=== PATIENT | male | born 1940 | race American Indian/Alaskan Native ===

== ENCOUNTER 2021-06-25 17:38 | Observation (INO) | payer MEDICARE ==
[2021-06-25] MEDS ORDERED: ASPIRIN 325 MG TAB PO ONE (18:58)
[2021-06-25 19:56] LABS: Basophils # (Auto) 0.1 K/mm3 (0.0-0.1); Basophils % (Auto) 0.6 % (0.0-1.8); Eosinophils # (Auto) 0.2 K/mm3 (0.0-0.4); Eosinophils % (Auto) 2.7 % (0.0-4.3); Hematocrit 34.1 % (35.5-45.6); Hemoglobin 10.7 gm/dl (11.8-15.2); Lymphocytes # (Auto) 1.4 K/mm3 (1.2-5.4); Lymphocytes % (Auto) 16.3 % (13.4-35.0); Mean Corpuscular HGB Conc 31 % (32-34); Mean Corpuscular Volume 86 fl (84-94); Monocytes # (Auto) 0.7 K/mm3 (0.0-0.8); Monocytes % (Auto) 7.9 % (0.0-7.3); Platelet Count 244 K/mm3 (140-440); Red Blood Count 3.97 M/mm3 (3.65-5.03); Red Cell Distribution Width 15.6 % (13.2-15.2)
--- NOTE | 2021-06-25 19:58 | XRay Report ---
CHEST 2 VIEWS INDICATION / CLINICAL INFORMATION: Chest Pain. COMPARISON: None available. FINDINGS: SUPPORT DEVICES: None. HEART / MEDIASTINUM: No significant abnormality. LUNGS / PLEURA: There is blunting of the right costophrenic angle most suggestive of a [id number] ate pleural effusion. This does not appear to be layering and could be loculated. There is adjacent p arenchymal opacification of the right lower lung. ADDITIONAL FINDINGS: No significant additional findings. IMPRESSION: 1. Findings suggesting right pleural effusion, which could be loculated. Signer Name: Joey Wang MD Signed: 06/25/2021 7:53 PM Workstation Name: [id number]
[2021-06-25 20:13] LABS: INR 1.13 (0.87-1.13)
[2021-06-25 20:20] LABS: Alanine Aminotransferase 17 units/L (7-56); Albumin 3.4 g/dL (3.9-5); BUN/Creatinine Ratio 11; Blood Urea Nitrogen 18 mg/dL (9-20); Calcium 9.2 mg/dL (8.4-10.2); Hemolysis Index 3
[2021-06-25] MEDS ORDERED: FUROSEMIDE 40 MG/4 ML INJ IV ONE (21:06)
[2021-06-25] MEDS ORDERED: ALBUTEROL 2.5 MG/3 ML NEBU IH ONE (21:10)
[2021-06-25] MEDS ORDERED: IPRATROPIUM 0.02% NEBU 2.5 ML IH ONE (21:10)
[2021-06-25] MEDS ORDERED: AZITHROMYCIN/NS 500 MG/250 ML 500 MG/250 ML BAG IV ONE (21:11)
[2021-06-25] MEDS ORDERED: cefTRIAXone/NS 2 GM/100 ML 2 GM/100 ML BAG IV ONE (21:11)
--- NOTE | 2021-06-25 21:13 | Emergency Department Report ---
ED Chest Pain HPI - General Chief Complaint: Chest Pain Stated Complaint: COUGH Time Seen by Provider: 06/25/21 18:47 Source: patient Mode of arrival: Ambulatory Limitations: No Limitations - History of Present Illness Initial Comments: Patient is a 80-year-old male with history of COPD who presents to the emergency department complaint of shortness of breath. He also reports chest pain. He states his chest pain feels that he has rocks in his chest. He notes he has had fevers chills and now has been most recently coughing up blood. He states that he has been vaccinated for Covid and flu he notes that he has had leg swelling bilaterally. He notes that he is recently been on steroids and antibiotics. Severity scale (0 -10): 8 - Related Data Home Medications Medication Instructions Recorded Confirmed Last Taken Aspirin [Adult Low Dose Aspirin EC] 81 mg PO DAILY 05/23/18 06/13/18 06/13/18 05:00 81 mg Atorvastatin [Lipitor] 80 mg PO HS 05/23/18 06/13/18 06/12/18 80 mg Losartan Potassium 100 mg PO DAILY 05/23/18 06/13/18 06/13/18 05:00 100 mg Sitagliptin Phosphate [Januvia] 50 mg PO DAILY 05/23/18 06/13/18 06/12/18 50 mg Tamsulosin [Flomax] 0.4 mg PO DAILY 05/23/18 06/13/18 06/12/18 0.4mg cloNIDine [Catapres] 0.2 mg PO BID 05/23/18 06/13/18 06/13/18 05:00 0.2mg glipiZIDE XL [Glucotrol Xl] 2.5 mg PO DAILY 05/23/18 06/13/18 06/12/18 2.5mg hydrALAZINE [Apresoline TAB] 100 mg PO TID 05/23/18 06/13/18 06/13/18 05:00 100 mg Gabapentin 600 mg PO TID 06/06/18 06/13/18 06/13/18 05:00 Previous Rx's Medication Instructions Recorded Last Taken Type ALBUTEROL NEB's [Proventil 0.083% 2 inhalation IH BID #7 ml 10/07/13 06/12/18 Rx NEBS] 2 puffs Budesoni/Formotero 160-4.5(Nf) 2 puff IH BID #7 inha 10/07/13 06/12/18 Rx [Symbicort 160-4.5 (Nf)] 2 puff Clopidogrel [Plavix] 75 mg PO DAILY #30 tablet 10/07/13 06/12/18 Rx 75 mg Furosemide [Lasix] 40 mg PO DAILY #30 tablet 10/07/13 06/13/18 05:00 Rx 40 mg Pantoprazole [Protonix TAB] 40 mg PO DAILY #30 tablet 10/07/13 06/12/18 Rx 40 mg Potassium Chloride 20 meq PO DAILY #30 packet 10/07/13 06/12/18 Rx 20 meq HYDROcodone/APAP 10-325 [[facility] 1 each PO Q6HR PRN #20 tablet 06/06/18 06/12/18 Rx 10/325] 1 tab Allergies Allergy/AdvReac Type Severity Reaction Status Date / Time No Known Allergies Allergy Verified 06/25/21 17:39 Heart Score - HEART Score History: Slightly suspicious EKG: Normal Age: > 65 Risk factors: 1-2 risk factors Troponin: < normal limit HEART Score: 3 - EKG Read Time Time EKG Completed: 17:59 EKG Read Time: 18:07 ED Review of Systems ROS: Stated complaint: COUGH Other details as noted in HPI Constitutional: chills, fever Eyes: denies: eye pain ENT: denies: throat pain Respiratory: cough, shortness of breath, SOB with exertion Cardiovascular: chest pain, dyspnea on exertion Endocrine: no symptoms reported Gastrointestinal: as per HPI Genitourinary: as per HPI Musculoskeletal: as per HPI Skin: as per HPI Neurological: as per HPI Psychiatric: as per HPI Hematological/Lymphatic: as per HPI ED Past Medical Hx - Past Medical History Hx Hypertension: Yes (1999) Hx Congestive Heart Failure: Yes Hx Diabetes: Yes Hx GERD: Yes Hx Arthritis: Yes Hx COPD: Yes - Surgical History Additional Surgical History: Bypass x 2 (2011), thoracentesis 2013 - Social History Smoking Status: Former Smoker - Medications Home Medications: Home Medications Medication Instructions Recorded Confirmed Last Taken Type ALBUTEROL NEB's [Proventil 0.083% 2 inhalation IH BID #7 ml 10/07/13 06/13/18 06/12/18 Rx NEBS] 2 puffs Budesoni/Formotero 160-4.5(Nf) 2 puff IH BID #7 inha 10/07/13 06/13/18 06/12/18 Rx [Symbicort 160-4.5 (Nf)] 2 puff Clopidogrel [Plavix] 75 mg PO DAILY #30 tablet 10/07/13 06/13/18 06/12/18 Rx 75 mg Furosemide [Lasix] 40 mg PO DAILY #30 tablet 10/07/13 06/13/18 06/13/18 05:00 Rx 40 mg Pantoprazole [Protonix TAB] 40 mg PO DAILY #30 tablet 10/07/13 06/13/18 06/12/18 Rx 40 mg Potassium Chloride 20 meq PO DAILY #30 packet 10/07/13 06/13/18 06/12/18 Rx 20 meq Aspirin [Adult Low Dose Aspirin EC] 81 mg PO DAILY 05/23/18 06/13/18 06/13/18 05:00 History 81 mg Atorvastatin [Lipitor] 80 mg PO HS 05/23/18 06/13/18 06/12/18 History 80 mg Losartan Potassium 100 mg PO DAILY 05/23/18 06/13/18 06/13/18 05:00 History 100 mg Sitagliptin Phosphate [Januvia] 50 mg PO DAILY 05/23/18 06/13/18 06/12/18 History 50 mg Tamsulosin [Flomax] 0.4 mg PO DAILY 05/23/18 06/13/18 06/12/18 History 0.4mg cloNIDine [Catapres] 0.2 mg PO BID 05/23/18 06/13/18 06/13/18 05:00 History 0.2mg glipiZIDE XL [Glucotrol Xl] 2.5 mg PO DAILY 05/23/18 06/13/18 06/12/18 History 2.5mg hydrALAZINE [Apresoline TAB] 100 mg PO TID 05/23/18 06/13/18 06/13/18 05:00 History 100 mg Gabapentin 600 mg PO TID 06/06/18 06/13/18 06/13/18 05:00 History HYDROcodone/APAP 10-325 [[facility] 1 each PO Q6HR PRN #20 tablet 06/06/18 06/13/18 06/12/18 Rx 10/325] 1 tab ED Physical Exam - General Limitations: No Limitations General appearance: alert - Head Head exam: Present: atraumatic, normocephalic - Eye Eye exam: Present: normal appearance - ENT ENT exam: Present: mucous membranes moist - Neck Neck exam: Present: normal inspection - Respiratory Respiratory exam: Present: normal lung sounds bilaterally. Absent: respiratory distress - Cardiovascular Cardiovascular Exam: Present: regular rate - Rectal Rectal exam: Present: deferred - Extremities Exam Extremities exam: Present: pedal edema (pitting edema) - Back Exam Back exam: Present: normal inspection - Neurological Exam Neurological exam: Present: alert, oriented X3 - Psychiatric Psychiatric exam: Present: normal affect, normal mood - Skin Skin exam: Present: warm, dry, intact, normal color. Absent: rash ED Course Vital Signs 06/25/21 17:42 Temperature 97.6 F Pulse Rate 99 H Respiratory 22 Rate Blood Pressure 185/90 [Right] O2 Sat by Pulse 96 Oximetry - Reevaluation(s) Reevaluation #1: 06/25/21 21:13 Labs are grossly normal except for elevated BNP. Will give IV Lasix. Chest x- ray shows pleural effusion on the right. We will also give antibiotics, obtain labs and blood cultures. ED Medical Decision Making - Lab Data Result diagrams: 06/25/21 19:39 06/25/21 19:39 - EKG Data -: EKG Interpreted by Ar EKG shows normal: sinus rhythm Rate: normal - EKG Data Interpretation: nonspecific ST-T wave ascencion - Radiology Data Radiology results: report reviewed, image reviewed - Medical Decision Making 80-year-old male here with complaint of shortness of breath. Patient has a history of COPD. He notes fevers chills leg swelling. On exam patient does appear fluid overloaded and has wheezing noted bilaterally. Plan to give DuoNebs, antibiotics. Will evaluate for elevated BNP prior to giving any Lasix. Patient likely to be admitted given age comorbidities and exam. Critical care attestation.: If time is entered above; I have spent that time in minutes in the direct care of this critically ill patient, excluding procedure time. ED Disposition Clinical Impression: COPD exacerbation, Fluid overload, Pneumonia Disposition: ADMITTED INPATIENT Is pt being admited?: Yes Does the pt Need Aspirin: Yes Condition: Stable Instructions: Chronic Obstructive Pulmonary Disease (ED), Bacterial Pneumonia (ED) Referrals: CRISTAL ORR MD [Primary Care Provider] - 3-5 Days Time of Disposition: 21:43
[2021-06-25] MEDS ORDERED: ALBUTEROL 2.5 MG/3 ML NEBU IH PRN (22:05)
[2021-06-25] MEDS ORDERED: ONDANSETRON 4 MG/2 ML INJ IV PRN (22:05)
[2021-06-25] MEDS ORDERED: ACETAMINOPHEN 325 MG TAB PO PRN (22:05)
[2021-06-25] MEDS ORDERED: HYDROmorphone 1 MG/1 ML INJ IV PRN (22:05)
[2021-06-25] MEDS ORDERED: MORPHINE 2 MG/1 ML INJ IV PRN (22:05)
--- NOTE | 2021-06-25 22:15 | History and Physical Report ---
History of Present Illness Date of examination: 06/25/21 Date of admission: 06/25/21 Chief complaint: Shortness of breath, chest pain History of present illness: 80-year-old male with history of COPD who presents to the emergency department complaint of shortness of breath and chest pain. He states his chest pain feels that he has rocks in his chest. He notes he has had fevers chills and now has been most recently coughing up blood. He states that he has been vaccinated for Covid and flu he notes that he has had leg swelling bilaterally. He notes that he is recently been on steroids and antibiotics. In the emergency room patient chest x-ray suggesting right pleural effusion which could be loculated, also patient proBNP is 1462, troponin 0 0.010 lactic acid 2.00's were going to admit the patient we will put the patient on pneumonia pathway as well as CHF pathway. Will consult pulmonary for evaluation Past History Past Medical History: COPD, diabetes, heart failure Medications and Allergies Allergies Allergy/AdvReac Type Severity Reaction Status Date / Time No Known Allergies Allergy Verified 06/25/21 17:39 Home Medications Medication Instructions Recorded Confirmed Last Taken Type ALBUTEROL NEB's [Proventil 0.083% 2 inhalation IH BID #7 ml 10/07/13 06/13/18 06/12/18 Rx NEBS] 2 puffs Budesoni/Formotero 160-4.5(Nf) 2 puff IH BID #7 inha 10/07/13 06/13/18 06/12/18 Rx [Symbicort 160-4.5 (Nf)] 2 puff Clopidogrel [Plavix] 75 mg PO DAILY #30 tablet 10/07/13 06/13/18 06/12/18 Rx 75 mg Furosemide [Lasix] 40 mg PO DAILY #30 tablet 10/07/13 06/13/18 06/13/18 05:00 Rx 40 mg Pantoprazole [Protonix TAB] 40 mg PO DAILY #30 tablet 10/07/13 06/13/18 06/12/18 Rx 40 mg Potassium Chloride 20 meq PO DAILY #30 packet 10/07/13 06/13/18 06/12/18 Rx 20 meq Aspirin [Adult Low Dose Aspirin EC] 81 mg PO DAILY 05/23/18 06/13/18 06/13/18 05:00 History 81 mg Atorvastatin [Lipitor] 80 mg PO HS 05/23/18 06/13/18 06/12/18 History 80 mg Losartan Potassium 100 mg PO DAILY 05/23/18 06/13/18 06/13/18 05:00 History 100 mg Sitagliptin Phosphate [Januvia] 50 mg PO DAILY 05/23/18 06/13/18 06/12/18 History 50 mg Tamsulosin [Flomax] 0.4 mg PO DAILY 05/23/18 06/13/18 06/12/18 History 0.4mg cloNIDine [Catapres] 0.2 mg PO BID 05/23/18 06/13/18 06/13/18 05:00 History 0.2mg glipiZIDE XL [Glucotrol Xl] 2.5 mg PO DAILY 05/23/18 06/13/18 06/12/18 History 2.5mg hydrALAZINE [Apresoline TAB] 100 mg PO TID 05/23/18 06/13/18 06/13/18 05:00 Hist ory 100 mg Gabapentin 600 mg PO TID 06/06/18 06/13/18 06/13/18 05:00 History HYDROcodone/APAP 10-325 [[place] 1 each PO Q6HR PRN #20 tablet 06/06/18 06/13/18 06/12/18 Rx 10/325] 1 tab Review of Systems All systems: negative Cardiovascular: orthopnea, edema, shortness of breath, dyspnea on exertion Respiratory: shortness of breath, dyspnea on exertion, wheezing Exam - Constitutional Vitals: Temp Pulse Resp BP Pulse Ox 97.6 F 99 H 22 185/90 96 06/25/21 17:42 06/25/21 17:42 06/25/21 17:42 06/25/21 17:42 06/25/21 17:42 General appearance: Present: no acute distress, well-nourished - EENT Eyes: Present: PERRL ENT: hearing intact, clear oral mucosa - Neck Neck: Present: supple, normal ROM - Respiratory Respiratory effort: normal Respiratory: bilateral: rales, wheezing - Cardiovascular Heart Sounds: Present: S1 & S2. Absent: rub, click - Extremities Extremities: pulses symmetrical, No edema Peripheral Pulses: within normal limits - Abdominal General gastrointestinal: Present: soft, non-tender, non-distended, normal bowel sounds Male genitourinary: Present: normal - Integumentary Integumentary: Present: clear, warm, dry - Musculoskeletal Musculoskeletal: gait normal, strength equal bilaterally - Psychiatric Psychiatric: appropriate mood/affect, intact judgment & insight - Neurologic Neurologic: CNII-XII intact, moves all extremities HEART Score - HEART Score EKG: Normal Age: > 65 Risk factors: 1-2 risk factors Troponin: Troponin T < 0.010 ng/mL (0.00-0.029) 06/25/21 21:20 Troponin: < normal limit Results - Labs CBC & Chem 7: 06/25/21 19:39 06/25/21 19:39 Labs: Laboratory Last Values WBC 8.5 K/mm3 (4.5-11.0) 06/25/21 19:39 RBC 3.97 M/mm3 (3.65-5.03) 06/25/21 19:39 Hgb 10.7 gm/dl (11.8-15.2) L 06/25/21 19:39 Hct 34.1 % (35.5-45.6) L 06/25/21 19:39 MCV 86 fl (84-94) 06/25/21 19:39 MCH 27 pg (28-32) L 06/25/21 19:39 MCHC 31 % (32-34) L 06/25/21 19:39 RDW 15.6 % (13.2-15.2) H 06/25/21 19:39 Plt Count 244 K/mm3 (140-440) 06/25/21 19:39 Lymph % (Auto) 16.3 % (13.4-35.0) 06/25/21 19:39 [place] % (Auto) 7.9 % (0.0-7.3) H 06/25/21 19:39 Eos % (Auto) 2.7 % (0.0-4.3) 06/25/21 19:39 Baso % (Auto) 0.6 % (0.0-1.8) 06/25/21 19:39 Lymph # (Auto) 1.4 K/mm3 (1.2-5.4) 06/25/21 19:39 [place] # (Auto) 0.7 K/mm3 (0.0-0.8) 06/25/21 19:39 Eos # (Auto) 0.2 K/mm3 (0.0-0.4) 06/25/21 19:39 Baso # (Auto) 0.1 K/mm3 (0.0-0.1) 06/25/21 19:39 Seg Neutrophils % 72.5 % (40.0-70.0) H 06/25/21 19:39 Seg Neutrophils # 6.1 K/mm3 (1.8-7.7) 06/25/21 19:39 PT 15.7 Sec. (12.2-14.9) H 06/25/21 19:39 INR 1.13 (0.87-1.13) 06/25/21 19:39 Sodium 135 mmol/L (137-145) L 06/25/21 19:39 Potassium 4.1 mmol/L (3.6-5.0) 06/25/21 19:39 Chloride 99.5 mmol/L (98-107) 06/25/21 19:39 Carbon Dioxide 21 mmol/L (22-30) L 06/25/21 19:39 Anion Gap 19 mmol/L 06/25/21 19:39 BUN 18 mg/dL (9-20) 06/25/21 19:39 Creatinine 1.6 mg/dL (0.8-1.3) H 06/25/21 19:39 Estimated GFR 51 ml/min 06/25/21 19:39 BUN/Creatinine Ratio 11 % 06/25/21 19:39 Glucose 232 mg/dL (75-100) H 06/25/21 19:39 Lactic Acid 2.00 mmol/L (0.7-2.0) 06/25/21 21:20 Calcium 9.2 mg/dL (8.4-10.2) 06/25/21 19:39 Magnesium 2.20 mg/dL (1.7-2.3) 06/25/21 21:20 Total Bilirubin 0.40 mg/dL (0.1-1.2) 06/25/21 19:39 AST 15 units/L (5-40) 06/25/21 19:39 ALT 17 units/L (7-56) 06/25/21 19:39 Alkaline Phosphatase 113 units/L (35-129) 06/25/21 19:39 Troponin T < 0.010 ng/mL (0.00-0.029) 06/25/21 21:20 NT-Pro-B Natriuret Pep 1462 pg/mL (0-900) H 06/25/21 19:44 Total Protein 7.4 g/dL (6.3-8.2) 06/25/21 19:39 Albumin 3.4 g/dL (3.9-5) L 06/25/21 19:39 Albumin/Globulin Ratio 0.9 % 06/25/21 19:39 Lipase 47 units/L (13-60) 06/25/21 19:39 - Imaging and Cardiology Chest x-ray: report reviewed Assessment and Plan VTE prophylaxis?: Mechanical Plan of care discussed with patient/family: Yes - Patient Problems (1) Pleural effusion Current Visit: Yes Status: Acute Plan to address problem: Admit the patient to the medical floor. Oxygen via nasal cannula 3 L/min. DuoNeb by nebulizer every 4 hours. Albuterol via nebulizer every 4 hours as needed. Lasix 40 mg IV daily. Will consult pulmonary for evaluation (2) COPD exacerbation Current Visit: Yes Status: Acute Plan to address problem: Oxygen via nasal cannula 3 L/min. DuoNeb by nebulizer every 4 hours. Albuterol via nebulizer every 4 hours as needed. Continue home med. will consult pulmonary for evaluation (3) Pneumonia Current Visit: Yes Status: Acute Plan to address problem: Rocephin 2 g IV daily. Zithromax to 50 mg p.o. daily. We do the blood culture and sputum culture. Will consult pulmonary for evaluation. (4) CHF (congestive heart failure) Current Visit: No Status: Acute Plan to address problem: Fluid restriction. Lasix 40 mg IV daily. Maintain input output. Daily weight. Echocardiogram (5) Hypertension Current Visit: No Status: Acute Plan to address problem: Hydralazine 100 mg p.o. 3 times daily, losartan 100 mg p.o. daily. Lasix 40 mg IV daily. We will continue the home medication. We will monitor the blood pressure closely (6) Type II diabetes mellitus, uncontrolled Current Visit: No Status: Acute Plan to address problem: 1800 kcal ADA diet. Glipizide 2.5 mg p.o. daily. Sitagliptin 50 mg p.o. daily. Recheck BMP in the morning (7) DVT prophylaxis Current Visit: Yes Status: Acute Plan to address problem: SCD for DVT prophylaxis. Pepcid 20 mg p.o. twice daily for GI prophylaxis. Patient is a full code
[2021-06-25] MEDS ORDERED: cefTRIAXone/NS 2 GM/100 ML 2 GM/100 ML BAG IV SCH (23:00)
[2021-06-26] MEDS ORDERED: IPRATROPIUM/ALBUTEROL SULFATE 3 ML AMPUL.NEB IH SCH (02:00)
[2021-06-26 05:27] LABS: Basophils # (Auto) 0.1 K/mm3 (0.0-0.1); Basophils % (Auto) 0.7 % (0.0-1.8); Eosinophils # (Auto) 0.2 K/mm3 (0.0-0.4); Eosinophils % (Auto) 2.8 % (0.0-4.3); Hematocrit 34.1 % (35.5-45.6); Hemoglobin 10.9 gm/dl (11.8-15.2); Lymphocytes # (Auto) 1.2 K/mm3 (1.2-5.4); Lymphocytes % (Auto) 14.5 % (13.4-35.0); Mean Corpuscular HGB Conc 32 % (32-34); Mean Corpuscular Volume 85 fl (84-94); Monocytes # (Auto) 0.7 K/mm3 (0.0-0.8); Monocytes % (Auto) 8.8 % (0.0-7.3); Platelet Count 222 K/mm3 (140-440); Red Blood Count 4.02 M/mm3 (3.65-5.03); Red Cell Distribution Width 15.5 % (13.2-15.2)
[2021-06-26] MEDS ORDERED: hydrALAZINE 20 MG/1 ML INJ IV PRN (05:35)
[2021-06-26 05:39] LABS: Calcium 9.2 mg/dL (8.4-10.2)
[2021-06-26] MEDS ORDERED: HEPARIN 5,000 UNIT/1 ML VIAL SUB-Q SCH (06:00)
[2021-06-26 06:45] VITALS: BP 197/85
[2021-06-26] MEDS ORDERED: ARFORMOTEROL 15 MCG/2 ML NEBU IH SCH (08:00)
[2021-06-26] MEDS ORDERED: BUDESONIDE 0.5 MG/2 ML NEBU IH SCH (08:00)
[2021-06-26] MEDS ORDERED: GABAPENTIN 300 MG CAP PO SCH (08:00)
[2021-06-26] MEDS ORDERED: hydrALAZINE 100 MG TAB PO SCH (08:00)
--- NOTE | 2021-06-26 09:41 | Consultation ---
History of Present Illness Consult date: 06/26/21 Requesting physician: EDILBERTO JIMÉNEZ History of present illness: 80 y/o male presents with several days of dypsnea. Past History Past Medical History: COPD, diabetes, heart failure Medications and Allergies Allergies Allergy/AdvReac Type Severity Reaction Status Date / Time No Known Allergies Allergy Verified 06/25/21 17:39 Home Medications Medication Instructions Recorded Confirmed Last Taken Type ALBUTEROL NEB's [Proventil 0.083% 2 inhalation IH BID #7 ml 10/07/13 06/13/18 06/12/18 Rx NEBS] 2 puffs Budesoni/Formotero 160-4.5(Nf) 2 puff IH BID #7 inha 10/07/13 06/13/18 06/12/18 Rx [Symbicort 160-4.5 (Nf)] 2 puff Clopidogrel [Plavix] 75 mg PO DAILY #30 tablet 10/07/13 06/13/18 06/12/18 Rx 75 mg Furosemide [Lasix] 40 mg PO DAILY #30 tablet 10/07/13 06/13/18 06/13/18 05:00 Rx 40 mg Pantoprazole [Protonix TAB] 40 mg PO DAILY #30 tablet 10/07/13 06/13/18 06/12/18 Rx 40 mg Potassium Chloride 20 meq PO DAILY #30 packet 10/07/13 06/13/18 06/12/18 Rx 20 meq Aspirin [Adult Low Dose Aspirin EC] 81 mg PO DAILY 05/23/18 06/13/18 06/13/18 05:00 History 81 mg Atorvastatin [Lipitor] 80 mg PO HS 05/23/18 06/13/18 06/12/18 History 80 mg Losartan Potassium 100 mg PO DAILY 05/23/18 06/13/18 06/13/18 05:00 History 100 mg Sitagliptin Phosphate [Januvia] 50 mg PO DAILY 05/23/18 06/13/18 06/12/18 History 50 mg Tamsulosin [Flomax] 0.4 mg PO DAILY 05/23/18 06/13/18 06/12/18 History 0.4mg cloNIDine [Catapres] 0.2 mg PO BID 05/23/18 06/13/18 06/13/18 05:00 History 0.2mg glipiZIDE XL [Glucotrol Xl] 2.5 mg PO DAILY 05/23/18 06/13/18 06/12/18 History 2.5mg hydrALAZINE [Apresoline TAB] 100 mg PO TID 05/23/18 06/13/18 06/13/18 05:00 History 100 mg Gabapentin 600 mg PO TID 06/06/18 06/13/18 06/13/18 05:00 History HYDROcodone/APAP 10-325 [[place] 1 each PO Q6HR PRN #20 tablet 06/06/18 06/13/18 06/12/18 Rx 10/325] 1 tab Active Meds: Active Medications Acetaminophen (Acetaminophen 325 Mg Tab) 650 mg PO Q4H PRN PRN Reason: Pain MILD(1-3)/Fever >100.5/ZEPEDA Albuterol (Albuterol 2.5 Mg/3 Ml Nebu) 2.5 mg IH Q3HRT PRN PRN Reason: Shortness Of Breath Albuterol/Ipratropium (Ipratropium/Albuterol Sulfate 3 Ml Ampul.Neb) 1 ampul IH Q6HRT ON LICENSE OF [facility] Last Admin: 06/26/21 05:36 Dose: 1 ampul Documented by: Arformoterol Tartrate (Arformoterol 15 Mcg/2 Ml Nebu) 15 mcg IH Q12HRT ON LICENSE OF [facility] Aspirin (Aspirin Ec 81 Mg Tab) 81 mg PO DAILY ON LICENSE OF [facility] Atorvastatin Calcium (Atorvastatin 40 Mg Tab) 80 mg PO QHS ON LICENSE OF [facility] Azithromycin (Azithromycin 250 Mg Tab) 250 mg PO QDAY ON LICENSE OF [facility]; Protocol Budesonide (Budesonide 0.5 Mg/2 Ml Nebu) 1 mg IH Q12HRT ON LICENSE OF [facility] Clonidine HCl (Clonidine 0.2 Mg Tab) 0.2 mg PO BID ON LICENSE OF [facility] Clopidogrel Bisulfate (Clopidogrel 75 Mg Tab) 75 mg PO DAILY ON LICENSE OF [facility] Famotidine (Famotidine 10 Mg Tab) 10 mg PO BID ON LICENSE OF [facility] Furosemide (Furosemide 40 Mg/4 Ml Inj) 40 mg IV QDAY ON LICENSE OF [facility] Gabapentin (Gabapentin 300 Mg Cap) 600 mg PO TID ON LICENSE OF [facility] Last Admin: 06/26/21 09:06 Dose: 600 mg Documented by: Glipizide (Glipizide Xl 2.5 Mg Tab) 2.5 mg PO DAILY ON LICENSE OF [facility] Hydralazine HCl (Hydralazine 100 Mg Tab) 100 mg PO TID ON LICENSE OF [facility] Last Admin: 06/26/21 09:06 Dose: 100 mg Documented by: Hydralazine HCl (Hydralazine 20 Mg/1 Ml Inj) 10 mg IV Q6HR PRN PRN Reason: Hypertension Last Admin: 06/26/21 05:49 Dose: 10 mg Documented by: Hydromorphone HCl (Hydromorphone 1 Mg/1 Ml Inj) 0.5 mg IV Q3H PRN PRN Reason: Pain , Severe (7-10) Ceftriaxone Sodium (Rocephin/Ns 2 Gm/100 Ml) 2 gm in 100 mls @ 200 mls/hr IV Q24H SHAN; Protocol Last Admin: 06/26/21 00:56 Dose: 200 mls/hr Documented by: Linagliptin (Linagliptin 5 Mg Tab) 5 mg PO QDAY ON LICENSE OF [facility] Losartan Potassium (Losartan 50 Mg Tab) 100 mg PO DAILY ON LICENSE OF [facility] Montelukast Sodium (Montelukast 10 Mg Tab) 10 mg PO QHS SHAN Morphine Sulfate (Morphine 2 Mg/1 Ml Inj) 2 mg IV Q4H PRN PRN Reason: Pain, Moderate (4-6) Ondansetron HCl (Ondansetron 4 Mg/2 Ml Inj) 4 mg IV Q8H PRN PRN Reason: Nausea And Vomiting Potassium Chloride (Potassium Chloride 20 Meq Packet) 20 meq PO DAILY ON LICENSE OF [facility] Sodium Chloride (Sodium Chloride 0.9% 10 Ml Flush Syringe) 10 ml IV BID SHAN Sodium Chloride (Sodium Chloride 0.9% 10 Ml Flush Syringe) 10 ml IV PRN PRN PRN Reason: LINE FLUSH Tamsulosin HCl (Tamsulosin 0.4 Mg Cap) 0.4 mg PO DAILY ON LICENSE OF [facility] Physical Examination Vital signs: Vital Signs Temp Pulse Resp BP Pulse Ox 97.6 F 99 H 22 185/90 96 06/25/21 17:42 06/25/21 17:42 06/25/21 17:42 06/25/21 17:42 06/25/21 17:42 Ascultation: Right: diminished breath sounds (right base), Left: clear Percussion: Right: dull (base) Results - Laboratory Findings CBC and BMP: 06/26/21 04:36 06/26/21 04:36 PT/INR, D-dimer PT 15.7 Sec. (12.2-14.9) H 06/25/21 19:39 INR 1.13 (0.87-1.13) 06/25/21 19:39 Abnormal lab findings: Abnormal Labs 06/25/21 06/25/21 06/25/21 19:39 19:39 19:39 Hgb 10.7 L Hct 34.1 L MCH 27 L MCHC 31 L RDW 15.6 H [place] % (Auto) 7.9 H Seg Neutrophils % 72.5 H PT 15.7 H Sodium 135 L Potassium Carbon Dioxide 21 L Creatinine 1.6 H Glucose 232 H NT-Pro-B Natriuret Pep Albumin 3.4 L 06/25/21 06/26/21 06/26/21 19:44 04:36 04:36 Hgb 10.9 L Hct 34.1 L MCH 27 L MCHC RDW 15.5 H [place] % (Auto) 8.8 H Seg Neutrophils % 73.2 H PT Sodium Potassium 3.5 L Carbon Dioxide Creatinine 1.4 H Glucose 136 H NT-Pro-B Natriuret Pep 1462 H Albumin - Diagnostic Findings Chest x-ray: image reviewed Assessment and Plan 80 y/o male with shortness of breath, found to have right sided pleural effusion and elevated BNP 1. Suggest obtaining 2D echo. Last one was 7 years ago ready by [facility] that showed normal EF 2. Would recommend US guided thoracentesis by radiology. Please send fluid for Protein, LDH, Cell Count with Diff, glucose, gram stain and culture. 3. Has some evidence of chronic changes on CXR. Will ask if patient continues to follow outside pulm. Did see Dr. Marley in the hospital before, if he follows with him, then I'll transfer the consult.
[2021-06-26] MEDS ORDERED: FUROSEMIDE 40 MG/4 ML INJ IV SCH (10:00)
[2021-06-26] MEDS ORDERED: LOSARTAN 50 MG TAB PO SCH (10:00)
[2021-06-26] MEDS ORDERED: NON-FORMULARY EACH (Sitagliptin Phosphate [Januvia] 50 MG Tablet) PO SCH (10:00)
[2021-06-26] MEDS ORDERED: NON-FORMULARY EACH (Budesoni/Formotero 160-4.5(Nf) 10.2 GM Inha) IH SCH (10:00)
[2021-06-26] MEDS ORDERED: POTASSIUM CHLORIDE 20 MEQ PACKET PO SCH (10:00)
[2021-06-26] MEDS ORDERED: NON-FORMULARY EACH (Losartan Potassium [Losartan Potassium] 100 MG Tablet) PO SCH (10:00)
[2021-06-26] MEDS ORDERED: cloNIDine 0.2 MG TAB PO SCH (10:00)
[2021-06-26] MEDS ORDERED: ASPIRIN EC 81 MG TAB PO SCH (10:00)
[2021-06-26] MEDS ORDERED: AZITHROMYCIN 250 MG TAB PO SCH (10:00)
[2021-06-26] MEDS ORDERED: CLOPIDOGREL 75 MG TAB PO SCH (10:00)
[2021-06-26] MEDS ORDERED: TAMSULOSIN 0.4 MG CAP PO SCH (10:00)
[2021-06-26] MEDS ORDERED: LINAGLIPTIN 5 MG TAB PO SCH (10:00)
[2021-06-26] MEDS ORDERED: FAMOTIDINE 10 MG TAB PO SCH (10:00)
[2021-06-26] MEDS ORDERED: FAMOTIDINE 20 MG TAB PO SCH (10:00)
--- NOTE | 2021-06-26 12:53 | Electrocardiograph Report ---
[facility] Test Date: 2021-06-25 Test Time: 17:59:55 Pat Name: KIRK SOUZA Department: Room: [place] [address] Gender: M Reeling Operator: MEL : 1940 Requested By: DIALLO VERDUZCO Order Number: [id number] Reading MD: Mustapha Pina Measurements Intervals [place] Rate: 95 P: 54 OK: 189 QRS: 27 QRSD: 83 T: -35 QT: 344 QTc: 431 Interpretive Statements Sinus rhythm Probable left atrial enlargement Anterior infarct, old No previous ECG available for comparison Electronically Signed On 06-26-2021 12:52:51 EST by Mustapha Pina
[2021-06-26] MEDS ORDERED: MONTELUKAST 10 MG TAB PO SCH (22:00)
[2021-06-26] MEDS ORDERED: NON-FORMULARY EACH (Atorvastatin [Lipitor] 80 MG Tablet) PO SCH (22:00)
--- NOTE | 2021-06-27 12:02 | Electrocardiograph Report ---
[facility] Test Date: 2021-06-25 Test Time: 17:58:03 Pat Name: KIRK SOUZA Department: Room: [place] [address] Gender: M [facility] Representative: MEL : 1940 Requested By: PALMIRA STOVER Order Number: [id number] Reading MD: Mustapha Pina Measurements Intervals [place] Rate: 92 P: 59 MN: 185 QRS: 46 QRSD: 87 T: -73 QT: 360 QTc: 447 Interpretive Statements Sinus rhythm Supraventricular bigeminy Probable left atrial enlargement Anterior infarct, old No previous ECG available for comparison Electronically Signed On 06-27-2021 12:02:34 EST by Mustapha Pina
== END 2021-06-26 09:50 | disposition left against medical advice (07) ==
LOC: ED 17:38 → 4A 21:43 → 3A 06-26 05:33
PROVIDERS: ADMIT Hospitalist; ATTEND Internal Medicine
DX: J44.1 Chronic obstructive pulmonary disease with (acute) exacerbation (principal); E87.70 Fluid overload, unspecified; J18.9 Pneumonia, unspecified organism; J90 Pleural effusion, not elsewhere classified; I11.0 Hypertensive heart disease with heart failure; I50.9 Heart failure, unspecified; E11.65 Type 2 diabetes mellitus with hyperglycemia; K21.9 Gastro-esophageal reflux disease without esophagitis; M19.90 Unspecified osteoarthritis, unspecified site; Z79.82 Long term (current) use of aspirin; Z79.899 Other long term (current) drug therapy; Z98.890 Other specified postprocedural states; Z87.891 Personal history of nicotine dependence
CPT/HCPCS: 36415; 71046; 80048; 80053; 82140; 83690; 83735; 83880; 84484; 85025; 85610; 87040; 93005; 94644; 96365; 96375; 99285; G0378; J0360; J0696